=== PATIENT | female | born 1965 | race Caucasian/White ===

== ENCOUNTER → 2018-10-17 | Outpatient (CLI) | payer BC ==
[2018-10-17 11:07] LABS: LDL Cholesterol,Calculated 89.8 mg/dL (0.0-131.0); VLDL Calculation 10.2 mg/dL (5.00-40.00)
== END | disposition home or self-care (01) ==
LOC: LABWHC1 07:00
PROVIDERS: ATTEND Family Medicine
DX: E55.9 Vitamin D deficiency, unspecified (principal); Z13.1 Encounter for screening for diabetes mellitus; Z13.220 Encounter for screening for lipoid disorders
CPT/HCPCS: 36415; 80061; 82306; 82947

== ENCOUNTER → 2018-12-05 | Outpatient (CLI) | payer BC ==
--- NOTE | 2018-12-05 13:40 | MM ---
Reason for exam: screening (asymptomatic). Last mammogram was performed 1 year and 3 months ago. History: Patient is postmenopausal. Retro-pectoral implants in both breasts, 2007. Physical Findings: A clinical breast exam by your physician is recommended on an annual basis and results should be correlated with mammographic findings. MG Screening Mammo Implant/CAD Bilateral CC, MLO, and ID view(s) were taken. Prior study comparison: September 12, 2017, mammogram, performed at [facility]. May 11, 2016, mammogram, performed at [facility]. April 29, 2015, mammogram, performed at [facility]. The breast tissue is heterogeneously dense. This may lower the sensitivity of mammography. No suspicious abnormality. Prepectoral saline implants. No significant changes when compared with prior studies. ASSESSMENT: Negative, BI-RAD 1 RECOMMENDATION: Routine screening mammogram of both breasts in 1 year.
== END | disposition home or self-care (01) ==
LOC: RADMAMWWP 06:59
PROVIDERS: ATTEND Family Medicine
DX: Z12.31 Encounter for screening mammogram for malignant neoplasm of breast (principal)
CPT/HCPCS: 77067

== ENCOUNTER → 2020-05-21 | Outpatient (CLI) | payer BC ==
[2020-05-21 08:30] LABS: ALT 16 U/L (4-34); AST 26 U/L (14-36); African American GFR (CKD) >90 (>60 ml/min/1.73 sqM); Albumin 4.4 g/dL (3.5-5.0); Alkaline Phosphatase 62 U/L (38-126); Anion Gap 4 mmol/L; Blood Urea Nitrogen 14 mg/dL (7-17); Calcium 9.3 mg/dL (8.4-10.2); Carbon Dioxide 30 mmol/L (22-30); Chloride 105 mmol/L (98-107); Cholesterol 188 mg/dL (<200); Glucose 107 mg/dL (74-99); HDL Cholesterol 89 mg/dL (40-60); LDL Cholesterol,Calculated 77 mg/dL (0-99); Non-African American GFR(CKD) 87 (>60 ml/min/1.73 sqM); Potassium 4.6 mmol/L (3.5-5.1); Sodium 139 mmol/L (137-145); Total Bilirubin 0.9 mg/dL (0.2-1.3); Total Protein 7.1 g/dL (6.3-8.2); Triglycerides 108 mg/dL (<150)
--- NOTE | 2020-05-24 09:30 | MM ---
Reason for exam: screening (asymptomatic). Last mammogram was performed 1 year and 5 months ago. History: Patient is postmenopausal. Retro-pectoral implants in both breasts, 2007. Physical Findings: A clinical breast exam by your physician is recommended on an annual basis and results should be correlated with mammographic findings. MG 3D Screen Mammo Imp/Cad Bilateral CC and MLO view(s) were taken. Prior study comparison: December 05, 2018, bilateral MG screening mammo implant/CAD. September 12, 2017, mammogram, performed at [facility]. The breast tissue is heterogeneously dense. This may lower the sensitivity of mammography. Benign appearing bilateral calcifications. There is chronic nodularity in the right breast. No significant changes when compared with prior studies. ASSESSMENT: Benign, BI-RAD 2 RECOMMENDATION: Routine screening mammogram of both breasts in 1 year.
== END | disposition home or self-care (01) ==
LOC: RADMAMWWP 07:22
PROVIDERS: ATTEND Family Medicine
DX: Z12.31 Encounter for screening mammogram for malignant neoplasm of breast (principal); K21.9 Gastro-esophageal reflux disease without esophagitis; E55.9 Vitamin D deficiency, unspecified; Z11.59 Encounter for screening for other viral diseases; Z13.220 Encounter for screening for lipoid disorders
CPT/HCPCS: 36415; 77063; 77067; 80053; 80061; 82306; 86803

== ENCOUNTER → 2020-10-15 | Day surgery (SDC) | payer BC ==
[2020-10-11 13:05] VITALS: BMI 22.6
[~2020-10-15] MED LIST: BUPIVACAINE (PF) 0.25% 30 ML VIAL SQ ONE; DEXAMETHASONE SOD PHOSPHATE 4 MG/ML 1 ML VIAL IV ONE; HYDROcodone/APAP 5-325MG 1 EACH TAB ONE; HYDROcodone/APAP 5-325MG 1 EACH TAB PO ONE; KETOROLAC 15 MG/ML 1 ML VIAL ONE; LACTATED RINGERS 1,000 ML IV ONE; LACTATED RINGERS 1,000 ML IV SCH; MIDAZOLAM 2 MG/2 ML VIAL IV PRN; MIDAZOLAM 2 MG/2 ML VIAL ONE; ONDANSETRON 4 MG/2 ML VIAL IVP ONE; PROPOFOL 10 MG/ML 20 ML VIAL IV ONE; SCOPOLAMINE 1.5MG/72HR PATCH TRANSDERM ONE; fentaNYL (PF) 50 MCG/ML 2 ML AMP ONE
[2020-10-15] MEDS: HYDROmorphone 0.5 MG/0.5 ML SYRINGE IVP PRN ×2 (10:00→10:18)
[2020-10-15 10:14] VITALS: TEMP 97.4
--- NOTE | 2020-10-15 10:15 | FL ---
Fluoroscopy INDICATION: Pain FINDINGS: Fluoroscopy time: 1 minute 38 seconds. Images obtained: 3. IMPRESSIONS: 1. Documentation of fluoroscopy.
[2020-10-15 11:30] VITALS: BP 104/67; PULSE 62; RESP 16
--- NOTE | 2020-10-18 14:09 | OP ---
OPERATIVE REPORT DATE OF SURGERY: October 15, 2020. PREOPERATIVE DIAGNOSES: 1. Hallux valgus, right foot. 2. Hammertoe, second digit, right foot. POSTOPERATIVE DIAGNOSES: 1. Hallux valgus, right foot. 2. Hammertoe, second digit, right foot. PROCEDURE: 1. Modified Lapidus bunionectomy, right foot. 2. Single hammertoe correction, second digit, right foot. SURGEON: Jim Montejo DPM. ANESTHESIA: General. HEMOSTASIS: Right ankle tourniquet at 250 mmHg. ESTIMATED BLOOD LOSS: Minimal. MATERIALS: Lapiplasty dorsal straight plate and medial plantar plate with associated screws and one [employer] hammertoe implant. INJECTABLES: 20 mL 0.25% Marcaine preop. SPECIMENS: None. COMPLICATIONS: None. OPERATIVE REPORT: Operative report is as follows: The patient was brought to the operating room and placed on the table in supine position. A timeout was taken to confirm correct patient identifiers, correct site of surgery and correct procedure. When the room was in agreement, the patient was placed under general anesthetic. A well-padded tourniquet was placed on the right ankle and then 20 mL of 0.25% Marcaine was injected into right ankle block and the right foot was prepped and draped in usual manner. The foot was exsanguinated. The tourniquet inflated to 250 mmHg. Attention was directed over the dorsal aspect of the right foot. An incision was made over the first metatarsocuneiform joint medial to the long extensor tendon to the great toe, deepened down to the subcutaneous tissue careful to identify, avoid and retract all neurovascular structures and cauterize any bleeding vessels. Blunt dissection was continued down to the periosteum which was incised over the joint surface. Subperiosteal dissection was used to expose the first tarsometatarsal joint. The saw blade was inserted in the joint to plane the joint surfaces and to free the soft tissues and then a K-wire was inserted at the base of the first metatarsal to allow for derotation of the first metatarsal. Under fluoroscopic visualization, manual reduction was performed along with the rotation. It was noted that the sesamoids did not correct, so another small incision was made on the lateral side of the first metatarsophalangeal joint. It was deepened down to the subcutaneous tissue until the joint was exposed. A lateral capsulotomy performed and a lateral sesamoid collateral ligament transected, which then allowed the sesamoids to correct with manual manipulation and then attention was redirected back to the first tarsometatarsal joint where another small incision was made just lateral to the second metatarsal and bluntly dissected so that the reduction clamp could be inserted. It was placed at the appropriate position on the first metatarsal and then reduction was performed to correct the intermetatarsal angle. Once that was completed, the fulcrum was inserted to allow for the reduction and then the joint seeker was placed in the joint. The drill guide was placed over the joint seeker and then temporarily fixated. It was adjusted to allow for proper alignment and then the third pin was placed to stop any rotation and motion. A sagittal saw was then used to resect the joint surfaces of both the base of the first metatarsal and the medial cuneiform. The pin was removed so that the drill guide could be removed. The joint distractor was inserted and then opened and then the cut fragments of bone were all removed and then a 2-0 drill bit was used to fenestrate the conjoining surfaces thoroughly, leaving the bony fragments behind from the drill bit and then the distractor was used to reduce the arthrodesis site while dorsiflexing the first metatarsophalangeal joint and maintaining alignment until it was fully compressed and fluoroscopy was used to check the overall correction, which showed the intermetatarsal angle was corrected. The sesamoid position was maintained. and there was good bony contact both on the fluoroscopy and with direct visualization. A threaded olive wire was then inserted across the arthrodesis which allowed for further compression and maintained the correction. Then the medial U shaped plate was positioned and temporarily fixated. Its position was checked under fluoroscopy. The locking screws were then placed closest to the arthrodesis surface and the temporary fixation was removed and the proximal screws placed on either side of the arthrodesis site. Fluoroscopic imaging showed that there was maintained correction as well as proper placement of hardware. The dorsal plate was then positioned and then temporarily fixated. Position was adjusted under fluoroscopy and once it was properly positioned, the 2 locking screws closest to the arthrodesis site were inserted first and then the proximal screws second after the temporary fixation was removed. Final fluoroscopic imaging showed maintained correction of the intermetatarsal angle as well as good bony contact and then the lateral view showed no gapping plantarly so at that point, the distractor/compressor was removed as well as retaining pins. The wound was irrigated thoroughly with antibiotic saline. Deep closure was done with 2-0 Vicryl. Subcutaneous closure was done with 4-0 Monocryl. Skin closure was done with 3-0 Stratafix in a running subcuticular manner. Subcuticular stitches were also placed in the small stab incisions for the lateral release as well as the placement of the reduction clamp. Attention was then directed to the second digit where a linear incision was made over the proximal interphalangeal joint, deepened down the subcutaneous tissue careful to identify, avoid and retract any neurovascular structures and cauterize any bleeding vessels. Dissection was continued to the proximal interphalangeal joint, which was resected to release the soft tissue. This was an area where there was previous surgery and nonunion, so the soft tissue was all removed. Then, guidewires were placed into the medullary canal of the proximal phalanx and middle phalanx and then the joint prep tool was used to get down to bleeding bone. Drilling was performed and then the [employer] hammertoe implant was inserted in the middle phalanx first. It was threaded in until it was in proper position and then the guidewires were removed and then the arms of the implant were impacted into the proximal phalanx until there was good compression at the arthrodesis site. The guidewire was inserted distally again to open the arms of the implants so that were locked in place and then the guidewire was removed. Fluoroscopic imaging showed correction of the deformity with proper placement of the implant and visually there was correction of the flexion contracture at the proximal interphalangeal joint, that wound was also irrigated with antibiotic saline and closed with 4-0 Monocryl and nylon. Desoto glue was applied over the smaller incisions, but not the hammertoe and then Steri-Strips were placed over the same small incision. The nonadherent gauze and dry sterile compressive dressing were applied to the right foot. The tourniquet was released. Capillary refill returned to all digits of the right foot. The patient was placed in a fracture boot with the ankle in neutral position. Anesthesia was reversed. The LMA removed. She was taken to recovery with vital signs stable. MMODL / IJN: [id number] / CLAUDIA
== END | disposition home or self-care (01) ==
LOC: OR 06:16
PROVIDERS: ATTEND Podiatrist
DX: M20.11 Hallux valgus (acquired), right foot (principal); M20.41 Other hammer toe(s) (acquired), right foot; Z98.82 Breast implant status; Z90.710 Acquired absence of both cervix and uterus; Z98.890 Other specified postprocedural states; Z97.2 Presence of dental prosthetic device (complete) (partial); Z98.811 Dental restoration status; Z82.49 Family history of ischemic heart disease and other diseases of the circulatory system
CPT/HCPCS: 73620; 28297; 28285; C1713; J2250; J1100; J0690; J2405; J3010; J1885; J2704; J1170

== ENCOUNTER → 2021-04-19 | Outpatient (CLI) | payer BC ==
[2021-04-20 07:37] LABS: C Reactive Protein, High Sens 0.406 mg/L (0.000-3.000); Chol/HDL Ratio 2.2 Ratio; HDL Cholesterol 77.3 mg/dL (40.00-60.00); Triglycerides 42.4 mg/dL (0.00-149.00); VLDL Calculation 8.48 mg/dL (5.00-40.00)
== END | disposition home or self-care (01) ==
LOC: LABWHC1 08:40
PROVIDERS: ATTEND Family Medicine
DX: E55.9 Vitamin D deficiency, unspecified (principal); Z82.49 Family history of ischemic heart disease and other diseases of the circulatory system
CPT/HCPCS: 36415; 80061; 82306; 86141

== ENCOUNTER 2021-05-06 13:24 | Day surgery (SDC) | payer BC ==
[2021-05-05 09:10] VITALS: BMI 22.6
[~2021-05-06 13:24] MED LIST changes: -BUPIVACAINE (PF) 0.25% 30 ML VIAL SQ ONE; -HYDROcodone/APAP 5-325MG 1 EACH TAB ONE; -HYDROcodone/APAP 5-325MG 1 EACH TAB PO ONE; -KETOROLAC 15 MG/ML 1 ML VIAL ONE; -LACTATED RINGERS 1,000 ML IV ONE; -MIDAZOLAM 2 MG/2 ML VIAL ONE; -PROPOFOL 10 MG/ML 20 ML VIAL IV ONE; -fentaNYL (PF) 50 MCG/ML 2 ML AMP ONE
[2021-05-06] MEDS ORDERED: LIDOCAINE 1% (10MG/ML) FOR IV START INTRADERMA ONE (13:51)
[2021-05-06] MEDS ORDERED: MIDAZOLAM 2 MG/2 ML VIAL ONE (14:57)
[2021-05-06] MEDS ORDERED: fentaNYL (PF) 50 MCG/ML 2 ML AMP ONE (14:57)
[2021-05-06] MEDS ORDERED: ePHEDrine 50 MG/ML 1 ML AMP ONE (14:57)
[2021-05-06] MEDS ORDERED: PROPOFOL 10 MG/ML 20 ML VIAL IV ONE (14:57)
[2021-05-06] MEDS ORDERED: LIDOCAINE 1% INJ 10MG/ML (20 ML MDV) ONE (14:57)
[2021-05-06] MEDS ORDERED: PHENYLEPHRINE-0.9% NACL SYG 1,000 MCG/10 ML SYRINGE ONE (14:57)
[2021-05-06] MEDS ORDERED: SODIUM CHLORIDE 0.9% 100 ML with ceFAZolin 2,000 MG IV ONE ×2 (15:01)
--- NOTE | 2021-05-06 16:55 | P.OP ---
Date of Procedure: 05/06/21 Preoperative Diagnosis: Hallux valgus left foot Postoperative Diagnosis: Same Procedure(s) Performed: Modified Lapidus bunionectomy left foot Implants: Lapiplasty screws and plates Anesthesia: HA Surgeon: Jim Montejo Estimated Blood Loss (ml): 3 Pathology: none sent Condition: stable Disposition: PACU Indications for Procedure: Painful bunion left foot unresponsive to conservative care Description of Procedure: The patient was brought into the operating room placed on table supine position. Timeout was taken to confirm correct patient identifiers, correct procedure, and correct site of surgery. When all staff in the room in agreement, the patient was induced and placed under general anesthesia. A well-padded tourniquet was placed on the left ankle. Then 20 mL of 0.25% Marcaine was injected as a left ankle block and then the left foot was prepped and draped in usual manner. The foot was exsanguinated with an Esmarch bandage and the tourniquet inflated to 250 mmHg. Attention was directed over the medial aspect of the first metatarsal phalangeal joint, where a linear incision was made between the neurovascular structures. The incision was deepened down to the subcutaneous layer careful to identify, avoid, and retract any neurovascular structures and cauterize any bleeding vessels. Capsular incision was made on the medial aspect of the first metatarsal phalangeal joint utilizing to semi-elliptical converging incisions. There was adhesive capsule was removed and taken from the surgical lobe. This would facilitate sesamoid correction upon closure. The capsules and reflected from the medial and plantar aspects of the first metatarsal head. Then a lateral capsulotomy was performed and a lateral release of the sesamoids completed. Then attention was directed over the dorsal midfoot where a linear incision was made centered over that first tarsometatarsal joint and between the extensor hallucis longus tendon and neurovascular structures. The incision was deepened down to the subcutaneous layer careful to identify, avoid, and retract any neurovascular structures and cauterize any bleeding vessels. Dissection was continued down to the joint capsule and periosteum. These tissues were incised medial to the extensor hallucis longus tendon. Subperiosteal dissection was performed of the capsular tissue to expose the first tarsometatarsal joint. The capsular ligaments of the first tarsometatarsal joint were all fully released. A guidewire was then inserted approximate 1 cm distal to the base of the first metatarsal on the medial aspect. This was to allow for frontal plane correc tion. The combination fulcrum/joint seeker was then inserted the first tarsometatarsal joint with a fulcrum portion of the lateral side of the first metatarsal base. The cut guide was placed over the joint seeker portion and then used as a reference for a small incision on the lateral aspect of the second metatarsal located approximate 3-4 mm distal to the distal tip of the cut guide. The incision was made and bluntly dissected on the lateral aspect of the second metatarsal head. The intermetatarsal angle reduction clamp was then placed over the lateral aspect of the second metatarsal and the base of the first metatarsal and the medial aspect. This is then utilized to reduce the intermetatarsal angle until his showed acceptable alignment on the fluoroscopic image. During the intermetatarsal angle reduction the joystick on the medial side of the first metatarsal base was used to derotate the first metatarsal for frontal plane correction. Once position was satisfactory wire was placed through the intermetatarsal angle reduction clamp through the first metatarsal into the second to lock it in place. The cut guide was then reinserted over the joint seeker and then wires were placed through the cut guide under fluoroscopic visualization so that was correctly aligned. The wires were advanced to the plantar aspect of the second metatarsal to lock it in place. A third wire was then placed distally in the angulated hole to prevent the cut guide from rising off of the pins. Fluoroscopy on AP and lateral views show that there was good correction intermetatarsal angle with no abnormal gapping plantarly or dorsally. The saw was then inserted through the cut guide and the conjoining surfaces of the tarsometatarsal joint were resected. The angulated wire and the cut guide was removed and then the cut guide slid off the remaining pins. The wire through the intermetatarsal angle reduction guide was then removed. The combination distractor/compressor was then placed over the guidewires and used to distract the joint. The cut portions of own were then removed in their entirety and taken from the surgical field. The wound is then thoroughly irrigated with antibiotic saline. Then a 2.0 mm drill bit was used to aggressively fenestrate the conjoining surfaces of the arthrodesis site. The distractor/compressor was then used to bring the surfaces of the arthrodesis together while holding the great toe dorsiflexed. This is done until the arthrodesis site was fully compressed. Fluoroscopy showed that the corrected alignment was maintained and there was good bony contact at the arthrodesis site. Lateral fluoroscopy confirmed that there was no plantar gapping. A threaded olive wire was then placed across the arthrodesis site for temporary fixation. The medial plate was applied first. Was temporarily fixated and realigned under fluoroscopy as needed. The internal holes closest to the arthrodesis site were utilized first, where a combination locking/compression screws were inserted and tightened to the full 6 and. Locking screws in place in the most distal proximal holes of the medial plate. The combination distractor/compressor was removed as were the guidewires it was sitting on. The dorsal plate was then positioned under fluoroscopy until properly aligned. It was then temporarily fixated. Holes in the plate closest to the arthrodesis s ite were drilled first and then the combination locking/compression screws were inserted and tightened to the full 6 to. Most distal proximal holes were then filled with locking screws. The threaded olive wire was removed and then fluoroscopy used to confirm the maintain the corrected alignment as well as the compression across the arthrodesis site. There is also a small medial eminence of the first metatarsal head through the medial incision. A sagittal saw was used to resect this eminence and all roughened edges of bone smoothed. All wounds were then thoroughly irrigated with antibiotic saline. The first metatarsal phalangeal joint capsule was closed with 0 Vicryl while holding the great toe in a correct position. Deep closure was done on the dorsal incision utilizing 2-0 Vicryl subcu closure was done all incisions with 4-0 Monocryl. The dorsomedial incisions were closed with 4-0 Stratafix in a running subcuticular manner. Dermal glue was applied across all incisions allowed to dry then Steri-Strips are placed across incision. An Arthrex Jumpstart dressing was placed over the incisions and a bulky dry dressing applied. The tourniquet was released and capillary refill return to all digits on the left foot. The patient was then placed in a well molded, well-padded plaster posterior mold/ sugar tong splint. Splint was held at 90 at the ankle until dried. Once the splint was dried anesthesia was reversed and the patient taken to recovery with vital signs stable
[2021-05-06 16:57] VITALS: TEMP 97.1
[2021-05-06] MEDS: HYDROmorphone 0.5 MG/0.5 ML SYRINGE IVP PRN ×2 (17:05→17:13)
[2021-05-06 17:31] VITALS: RESP 20
[2021-05-06] MEDS ORDERED: HYDROcodone/APAP 5-325MG 1 EACH TAB ONE (17:33)
[2021-05-06] MEDS ORDERED: HYDROcodone/APAP 5-325MG 1 EACH TAB PO ONE (17:35)
[2021-05-06 18:07] VITALS: BP 110/65; PULSE 89
[2021-05-06] MEDS ORDERED: ONDANSETRON 4 MG/2 ML VIAL IVP ONE (18:08)
[2021-05-06] MEDS ORDERED: ONDANSETRON 4 MG/2 ML VIAL ONE (18:09)
== END 2021-05-06 18:24 | disposition home or self-care (01) ==
LOC: OR 13:24
PROVIDERS: ATTEND Podiatrist
DX: M20.12 Hallux valgus (acquired), left foot (principal); Z90.710 Acquired absence of both cervix and uterus; Z98.890 Other specified postprocedural states; D68.51 Activated protein C resistance
CPT/HCPCS: 28297; C1713; J2250; J1100; J2405; J0690; J2001; J3010; J2370; J2704; J1170

== ENCOUNTER → 2021-06-14 | Outpatient (CLI) | payer BC ==
--- NOTE | 2021-06-16 11:44 | MM ---
Reason for exam: screening (asymptomatic). Last mammogram was performed 1 year and 1 month ago. History: Patient is postmenopausal. Retro-pectoral implants in both breasts, 2007. Physical Findings: A clinical breast exam by your physician is recommended on an annual basis and results should be correlated with mammographic findings. MG 3D Screen Mammo Imp/Cad Bilateral CC, MLO, and ID view(s) were taken. Prior study comparison: May 21, 2020, bilateral MG 3d screen mammo imp/cad. December 05, 2018, bilateral MG screening mammo implant/CAD. Bilateral breast prothesis. No significant changes when compared with prior studies. ASSESSMENT: Benign, BI-RAD 2 RECOMMENDATION: Routine screening mammogram of both breasts in 1 year.
== END | disposition home or self-care (01) ==
LOC: RADMAMWWP 13:39
PROVIDERS: ATTEND Family Medicine
DX: Z12.31 Encounter for screening mammogram for malignant neoplasm of breast (principal); Z78.0 Asymptomatic menopausal state
CPT/HCPCS: 77063; 77067

== ENCOUNTER → 2021-06-24 | Day surgery (SDC) | payer BC ==
[2021-06-22 14:30] VITALS: BMI 22.6
[~2021-06-24] MED LIST changes: -DEXAMETHASONE SOD PHOSPHATE 4 MG/ML 1 ML VIAL IV ONE; -MIDAZOLAM 2 MG/2 ML VIAL IV PRN; +ONDANSETRON 4 MG/2 ML VIAL ONE; +PROPOFOL 10 MG/ML 20 ML VIAL IV ONE; -SCOPOLAMINE 1.5MG/72HR PATCH TRANSDERM ONE
[2021-06-24 08:57] VITALS: TEMP 98.1
--- NOTE | 2021-06-24 10:19 | P.PCN ---
Date of Procedure: 06/24/21 Procedure(s) Performed: BRIEF HISTORY: Patient is a 56-year-old pleasant white female scheduled for an elective colonoscopy as a part of screening for colon cancer and family history of colon cancer diagnosed in her mother at age 60. PROCEDURE PERFORMED: Colonoscopy. PREOPERATIVE DIAGNOSIS: Screening for colon cancer and family history of colon cancer. IV sedation per Anesthesia. PROCEDURE: After informed consent was obtained, the patient, was brought into the endoscopy unit. IV sedation was administered by Anesthesia under continuous monitoring. Digital rectal examination was normal. Initially the Olympus CF-160 flexible video colonoscope was then inserted in the rectum, gradually advanced into the cecum without any difficulty. Careful examination was performed as the scope was gradually being withdrawn. Ileocecal valve and the appendiceal orifice were visualized and appeared normal. Prep was excellent. Mucosa of the cecum, ascending colon, transverse colon, descending colon, sigmoid colon, and rectum appeared normal. Retroflexion was performed in the rectum and no lesions were seen. The patient tolerated the procedure well. IMPRESSION: Normal-appearing colon from rectum to cecum with no evidence of colorectal neoplasia. RECOMMENDATIONS: Findings of this examination were discussed with the patient as well as a family. She was advised to have a repeat screening colonoscopy in 5 years from now because of the family history of colon cancer.
[2021-06-24 11:16] VITALS: BP 107/77; PULSE 64; RESP 16
== END ==
LOC: ORWHC2ENDO 08:23
PROVIDERS: ATTEND Internal Medicine Gastroenterology
DX: Z80.0 Family history of malignant neoplasm of digestive organs (principal); Z12.11 Encounter for screening for malignant neoplasm of colon
CPT/HCPCS: 45378; J2405; J2704

== ENCOUNTER → 2022-06-28 | Outpatient (CLI) | payer BC ==
--- NOTE | 2022-06-28 18:20 | MM ---
Reason for Exam: Screening (asymptomatic). Last screening mammogram was performed 12 month(s) ago. Patient History: Menarche at age 18. First Full-Term at age 24. Left ovary removed at age 47. Right ovary removed at age 47. Hysterectomy at age 47. Postmenopausal. Patient has history of breast feeding. 2007, Bilateral Implants. Risk Values: [place] 5 year model risk: 1.0%. NCI Lifetime model risk: 6.7%. Prior Study Comparison: 12/05/2018 Bilateral Screening Mammogram, [facility]. 05/21/2020 Bilateral Screening Mammogram, [facility]. 06/14/2021 Bilateral Screening Mammogram, [facility]. Tissue Density: There are scattered fibroglandular densities. Findings: Analyzed By CAD. There appears symmetrical and stable. Bilateral breast prostheses are present. No significant interval change is evident No suspicious groups of microcalcifications, spiculated or lobular masses, architectural distortion or other secondary signs of malignancy are mammographically apparent. Overall Assessment: Negative, BI-RAD 1 Management: Screening Mammogram of both breasts in 1 year. A negative mammogram report should not preclude additional follow up of suspicious palpable abnormalities. Patient should continue monthly self breast exam. A clinical breast exam by your physician is recommended on an annual basis and results should be correlated with mammographic findings. Electronically signed and approved by: Luis M Glover D.O. Radiologis
== END | disposition home or self-care (01) ==
LOC: RADMAMWWP 07:01
PROVIDERS: ATTEND Family Medicine
DX: Z12.31 Encounter for screening mammogram for malignant neoplasm of breast (principal); Z78.0 Asymptomatic menopausal state; Z90.721 Acquired absence of ovaries, unilateral
CPT/HCPCS: 77063; 77067